=== PATIENT | female | born 1970 | race Native Hawaiian/Other Pacific Islander ===

== ENCOUNTER 2016-05-10 15:17 | Outpatient (CLI) | payer BC ==
[~2016-05-10 15:17] MED LIST: ADIPEX PO; ADIPEX-P37.5 M1 OR; BIOTIN5000 MCG OR; TOPAMAX25 MG OR
== END 2016-05-10 19:21 | disposition home or self-care (01) ==
LOC: RAD 15:17
DX: R07.9 Chest pain, unspecified (principal)

== ENCOUNTER 2016-10-30 09:29 | Outpatient (CLI) | payer OTHER | END 2016-10-30 11:00 | disposition home or self-care (01) | LOC: US 09:29 | DX: M79.605 Pain in left leg (principal) ==

== ENCOUNTER 2017-02-12 10:44 | Outpatient (CLI) | payer OTHER ==
[2017-02-12 11:43] LABS: PLATELET COUNT 290 K/uL (152-353)
[2017-02-12 17:25] LABS: POTASSIUM 3.9 mmol/L (3.6-5.2); SODIUM 138 mmol/L (136-145)
== END 2017-02-12 19:17 | disposition home or self-care (01) ==
LOC: LABW 10:44
PROVIDERS: Internal Medicine
DX: R60.9 Edema, unspecified (principal)
CPT/HCPCS: 36415; 80053; 85027

== ENCOUNTER 2017-03-10 14:56 | Emergency (ER) | payer BC ==
[~2017-03-10] VITALS: Ht 154.9 cm; Wt 92.1 kg
[2017-03-10] MEDS ORDERED: CITALOPRAM20 MG PO (15:41)
[2017-03-10] MEDS ORDERED: VICODIN ES1 TA1 PO (15:41)
[2017-03-10] MEDS ORDERED: PROTONIX20 MG PO (15:41)
[2017-03-10] MEDS ORDERED: FURO20TA67 PO (15:42)
[2017-03-10] MEDS ORDERED: CYCL10TA35 PO (15:42)
[2017-03-10 16:35] LABS: PLATELET COUNT 359 K/uL (152-353)
[2017-03-10 16:44] LABS: POTASSIUM 3.8 mmol/L (3.6-5.2); SODIUM 137 mmol/L (136-145)
[2017-03-10 19:45] VITALS: BP 147/82; TEMP 98.7
== END 2017-03-10 19:48 | disposition home or self-care (01) ==
LOC: ED 14:56
DX: R10.84 Generalized abdominal pain (principal); N83.201 Unspecified ovarian cyst, right side; R91.1 Solitary pulmonary nodule
CPT/HCPCS: 36415; 80053; 81000; 82150; 83690; 85027; 96374; 99284; J1885; Q9963

== ENCOUNTER 2017-03-16 11:52 | Observation (INO) | payer BC ==
[~2017-03-16] VITALS: Ht 154.9 cm; Wt 102.6 kg
[~2017-03-16 11:52] MED LIST changes: +CITALOPRAM20 MG PO; +CYCL10TA35 PO; +FURO20TA67 PO; +PROTONIX20 MG PO; +VICODIN ES1 TA1 PO
[2017-03-16 12:44] LABS: PLATELET COUNT 407 K/uL (152-353)
[2017-03-16 12:50] LABS: POTASSIUM 3.3 mmol/L (3.6-5.2); SODIUM 135 mmol/L (136-145)
[2017-03-16 13:07] LABS: PARTIAL THROMBOPLASTIN TIME 27.2 SECONDS (24.5-33.6)
[2017-03-16 19:11] VITALS: BP 110/64; TEMP 97.8; Ht 154.9 cm; Wt 102.6 kg
[2017-03-16 23:41] VITALS: BP 118/69; TEMP 98
[2017-03-17 04:00] VITALS: BP 122/63; TEMP 97.9
[2017-03-17 05:48] LABS: PLATELET COUNT 335 K/uL (152-353)
[2017-03-17 08:00] VITALS: BP 131/76; TEMP 97.9
[2017-03-17 12:00] VITALS: BP 153/69; TEMP 99.1
--- NOTE | 2017-03-17 12:00 | NUR ---
DR. BRADFORD HERE. Pt. TO BE DISCHARGED AND F/U 03/23/17.
--- NOTE | 2017-03-17 13:02 | NUR ---
IV D/C'd. NO REDNESS OR EDEMA OBSERVED. DISCHARGE INSTRUCTIONS SIGNED AND GIVEN. Pt. EXIT OUT OF FRONT ENTRANCE AMBULATING.
== END 2017-03-17 13:02 | disposition home or self-care (01) ==
LOC: OR 11:52 → MED/SURG 14:33
PROVIDERS: ADMIT Student in an Organized Health Care Education/Training Program
PROC: 0DTJ4ZZ Resection of Appendix, Percutaneous Endoscopic Approach (ICD-10-PCS; principal; 2017-03-16)
DX: K35.89 Other acute appendicitis (principal); D72.828 Other elevated white blood cell count; N83.291 Other ovarian cyst, right side
CPT/HCPCS: 80053; 85027; 85610; 85730; 94760; 96365; 96366; 96372; 99220; G0378; J0132; J0330; J0690; J1100; J1170; J1644; J1885; J2001; J2250; J2405; J2704; J2765; J3010; J3490; S0028

== ENCOUNTER 2017-05-28 16:09 | Outpatient (CLI) | payer BC | END 2017-05-28 21:50 | disposition home or self-care (01) | LOC: CT 16:09 | DX: R51 Headache (principal) ==

== ENCOUNTER 2017-09-18 15:54 | Outpatient (CLI) | payer BC | END 2017-09-18 23:52 | disposition home or self-care (01) | LOC: RAD 15:54 | DX: R10.12 Left upper quadrant pain (principal) ==

== ENCOUNTER 2018-03-31 17:13 | Emergency (ER) | payer BC ==
[~2018-03-31] VITALS: Ht 154.9 cm; Wt 81.2 kg
[2018-03-31 18:35] LABS: PLATELET COUNT 354 K/uL (152-353)
[2018-03-31 18:47] LABS: POTASSIUM 3.4 mmol/L (3.6-5.2)
[2018-03-31 19:50] VITALS: BP 172/77; TEMP 98.5
== END 2018-03-31 19:53 | disposition home or self-care (01) ==
LOC: ED 17:13
PROVIDERS: Internal Medicine
DX: E87.6 Hypokalemia (principal); B34.9 Viral infection, unspecified; D72.829 Elevated white blood cell count, unspecified
CPT/HCPCS: 80053; 81000; 85027; 87651; 96372; 99283; J2550

== ENCOUNTER 2018-04-02 13:45 | Outpatient (CLI) | payer BC | END 2018-04-02 20:46 | disposition home or self-care (01) | LOC: RAD 13:45 | DX: R10.84 Generalized abdominal pain (principal) ==

== ENCOUNTER 2018-04-03 15:24 | Outpatient (CLI) | payer BC | END 2018-04-03 23:06 | disposition home or self-care (01) | LOC: LAB 15:24 | DX: R19.7 Diarrhea, unspecified (principal) | CPT/HCPCS: 82272; 83630; 87015; 87045; 87206; 87324; 87328; 87329; 87449; 87507; 87899 ==

== ENCOUNTER 2019-11-03 11:10 | Outpatient (CLI) | payer BC, OTHER | END 2019-11-03 23:02 | disposition home or self-care (01) | LOC: LAB 11:10 | DX: U07.1 COVID-19 (principal); Z20.828 Contact with and (suspected) exposure to other viral communicable diseases | CPT/HCPCS: 87635; G2023; U0003 ==

== ENCOUNTER 2021-11-14 12:23 | Emergency (ER) | payer OTHER, BC ==
[~2021-11-14] VITALS: Ht 154.9 cm; Wt 81.2 kg
[2021-11-14 15:15] VITALS: BP 152/82; TEMP 97.8
== END 2021-11-14 15:15 | disposition home health service (06) ==
LOC: ED 12:23
PROC: 2W3QX1Z Immobilization of Right Lower Leg using Splint (ICD-10-PCS; principal; 2021-11-14)
DX: S82.64XA Nondisplaced fracture of lateral malleolus of right fibula, initial encounter for closed fracture (principal); S32.19XA Other fracture of sacrum, initial encounter for closed fracture; W07.XXXA Fall from chair, initial encounter; Y92.218 Other school as the place of occurrence of the external cause
CPT/HCPCS: 99283